=== PATIENT | female | born 1965 | race Caucasian/White ===

== ENCOUNTER 2019-01-26 17:49 | Inpatient (IN) | payer MEDICAID ==
[~2019-01-26] VITALS: Ht 167.6 cm; Wt 79.4 kg
[2019-01-26 18:00] VITALS: BP 153/75
[2019-01-26 18:27] LABS: APPEARANCE CLEAR (CLEAR); BILIRUBIN NEGATIVE (NEGATIVE); COLOR YELLOW (YELLOW); GLUCOSE NEGATIVE (NEGATIVE); KETONE NEGATIVE (NEGATIVE); NITRITE NEGATIVE (NEGATIVE); PROTEIN NEGATIVE (NEGATIVE); UROBILINOGEN NORMAL (NORMAL)
[2019-01-26 18:48] LABS: ALBUMIN 3.1 g/dL (3.4-5.0); ALKALINE PHOSPHATASE 100 U/L (46-116); ALT (SGPT) 31 U/L (10-68); BILIRUBIN - TOTAL 1.83 mg/dL (0.2-1.3); CALC OSMOLALITY 281 mosm/kg (275-300); CALCIUM 8.7 mg/dL (8.5-10.1); CARBON DIOXIDE 23.4 mmol/L (21.0-32.0); CHLORIDE - SERUM 107 mmol/L (98-107); CREATININE - SERUM 0.7 mg/dL (0.6-1.3); GLUCOSE 123 mg/dL (74-106); POTASSIUM - SERUM 3.9 mmol/L (3.5-5.1); PROTEIN - SERUM 7.7 g/dL (6.4-8.2); SODIUM 141 mmol/L (136-145); UREA NITROGEN 13 mg/dL (7-18); eGFR NON AFRICAN AMERICAN > 90 mL/min (90-120)
[2019-01-26 19:00] VITALS: BP 143/65
--- NOTE | 2019-01-26 19:02 | NUR ---
CALLED BROTHER VINCENT [phone] WAS UNABLE TO GIVE ANY INFORMATION. DAVID [phone].
[2019-01-26 19:05] LABS: BASOPHILS 0.5 % (0-2); EOSINOPHILS 4.5 % (0-7); HEMATOCRIT 33.3 % (36.0-48.0); HEMOGLOBIN 11.1 g/dL (12-16); IMMATURE GRANULOCYTES 0.3 % (0-5); LYMPHOCYTES 18.8 % (15-50); MCH 30.4 pg (26.0-34.0); MCHC 33.3 g/dL (31.0-37.0); MCV 91.2 fL (80.0-100.0); MEAN PLATELET VOLUME 9.5 fL (7.4-10.4); MONOCYTES 8.3 % (2-11); NEUTROPHILS 67.6 % (40-80); RBC 3.65 10x6/uL (4.00-5.40); RDW 16.3 % (11.5-14.5)
[2019-01-26 19:16] LABS: PLATELET COUNT 37 10x3/uL (130-400)
[2019-01-26 19:34] LABS: THYROID STIMULATING HORMONE 2.65 uIU/mL (0.36-3.74); TROPONIN-I 0.019 ng/mL (0.000-0.060)
[2019-01-26 19:56] LABS: PLATELET ESTIMATE DECREASED
[2019-01-26 20:00] VITALS: BP 134/92
--- NOTE | 2019-01-26 20:15 | NUR ---
REPORT CALLED TO NURSE DIVYA FOR ROOM 2232. CT HERE FOR ABDOMEN WO CONTRAST. WILL TRANSPORT TO ROOM AFTER CT.
--- NOTE | 2019-01-26 20:40 | NUR ---
RECIEVED TO ROOM CONFUSED AND DISORIENTIATED UNABLE TO REDIRECT OR FOLLOW COMANDS SUCH ASSISTING TO TRANSFER TO BED, SALINE LOCK IN PLACE TO LEFT AC. MOVES ALL EXTREMITIES WELL PUPILS SLUGISH SIDE RAILS UP X 3 CALL LIGHT IN REACH ATTEMPTED TO ORIENTIATE TO ROOM DOES NOT APPEAR TO COMPREHEND. WILL MONITOR CLOSELY
--- NOTE | 2019-01-26 21:45 | NUR ---
CALL TO [facility] [employer] FOR DR LIZARRAGA, INFORMED OF PTS CONFUSION AND UNABLE TO KEEP IN BED, CONTINOUSLY GETTING LEGS OVER AND THROUGH SIDE RAILS, HAVE SPOKE WITH DAUGHTER WHO IS IN [place] AND STATES THER IS NO OTHER FAMILY WHO WOULD BE ABLE TO COME AND STAY WITH PT, AND TO DO WHAT EVER WE NEED TO DO. ORDERS RECIEVED FOR NICOLE NET BED. PT PLACED IN NICOLE NET BED AT THIS TIME
[2019-01-26 21:52] LABS: UDS - AMPHET NEGATIVE QUAL (NEGATIVE); UDS - BARB NEGATIVE QUAL (NEGATIVE); UDS - BENZO NEGATIVE QUAL (NEGATIVE); UDS - COCAINE NEGATIVE QUAL (NEGATIVE); UDS - OPIATE NEGATIVE QUAL (NEGATIVE); UDS - PCP NEGATIVE QUAL (NEGATIVE); UDS - THC NEGATIVE QUAL (NEGATIVE)
--- NOTE | 2019-01-26 23:51 | NUR ---
ASSESSED PT ALERT REMAINING CONFUSED SITTING UP IN BED ABLE TO STATE NAME BUT NO OTHER APPROIATE ANSWERS. HAS PULLED SALINE LOCK OUT. WATER GIVEN PLACED ON BEDPAN NO VOIDING AT THIS TIME
[2019-01-27] VITALS (8 sets, daily range): BP systolic 110–149; BP diastolic 60–72; Ht 167.6 cm; Wt 79.4 kg
--- NOTE | 2019-01-27 01:00 | NUR ---
LYING IN NICOLE NET BED EYES CLOSED RESP REGULAR WILL CONTINUE TO MONITOR
--- NOTE | 2019-01-27 03:42 | NUR ---
LYING IN NICOLE NET BED EYES CLOSED RESP UNLABORED NO APPARENT DISTRESS NOTED AT THIS TIME
--- NOTE | 2019-01-27 04:35 | NUR ---
AWAKE STATES NEEDS TO GO TO BATHROOM, ASSISTED UP TO BEDSIDE COMODE VOIDED, ABLE TO TRANSFER WITH MINIMAL ASSIST, STATES HEAD JUST FEELS LIKE ITS SWIMMING AND HAS FOR ABOUT A WEEK NOW, DENIES ANY MEMORY OF ARRIVAL AT HOSPITAL OR ANYTHING UP UNTIL NOW. ASSISTED BACK TO NICOLE NET BED CALL LIGHT IN REACH WILL MONITOR
[2019-01-27 05:09] LABS: BASOPHILS 0.9 % (0-2); EOSINOPHILS 4.7 % (0-7); HEMATOCRIT 37.2 % (36.0-48.0); HEMOGLOBIN 12.4 g/dL (12-16); IMMATURE GRANULOCYTES 0.5 % (0-5); LYMPHOCYTES 23.7 % (15-50); MCH 30.5 pg (26.0-34.0); MCHC 33.3 g/dL (31.0-37.0); MCV 91.4 fL (80.0-100.0); MEAN PLATELET VOLUME 9.4 fL (7.4-10.4); MONOCYTES 9.5 % (2-11); NEUTROPHILS 60.7 % (40-80); PLATELET COUNT 48 10x3/uL (130-400); RBC 4.07 10x6/uL (4.00-5.40); RDW 16.3 % (11.5-14.5); WBC 4.3 10x3/uL (4.8-10.8)
[2019-01-27 05:31] LABS: ALBUMIN 3.2 g/dL (3.4-5.0); ALKALINE PHOSPHATASE 97 U/L (46-116); ALT (SGPT) 33 U/L (10-68); BILIRUBIN - TOTAL 2.48 mg/dL (0.2-1.3); CALC OSMOLALITY 284 mosm/kg (275-300); CALCIUM 8.8 mg/dL (8.5-10.1); CARBON DIOXIDE 22.4 mmol/L (21.0-32.0); CHLORIDE - SERUM 107 mmol/L (98-107); CREATININE - SERUM 0.7 mg/dL (0.6-1.3); GLUCOSE 103 mg/dL (74-106); MAGNESIUM - SERUM 1.9 mg/dL (1.8-2.4); POTASSIUM - SERUM 3.7 mmol/L (3.5-5.1); PROTEIN - SERUM 7.9 g/dL (6.4-8.2); SODIUM 143 mmol/L (136-145); UREA NITROGEN 13 mg/dL (7-18); eGFR NON AFRICAN AMERICAN > 90 mL/min (90-120)
--- NOTE | 2019-01-27 06:00 | NUR ---
AWAKE AND ALERT ORIENTIATED X 4, ABLE TO USE CALL LIGHT TO CALL FOR ASSISTANCE SIDE PANELS ON NICOLE NET BED LEFT OPEN AT THIS TIME WILL MONITOR
--- NOTE | 2019-01-27 08:00 | NUR ---
PT ALERT AND ORIENTED X 3 WITH SIDES UP ON NICOLE BED. INSTRUCTED TO USE CALL LIGHT FOR ASSIST. NO RISK NOTED TO INJURY TO SELF NOTED.
--- NOTE | 2019-01-27 10:00 | NUR ---
CONTINUED ALERT AND ORIENTED AND ABLE TO FOLLOW DIRECTIONS WITHOUT RISK TO SELF NOTED. ENCOURAGED TO USE CALL LIGHT FOR ASSIST AND VERBALIZED UNDERSTANDING.NO C/O NOTED AT THIS TIME.
[2019-01-27] MEDS ORDERED: CYCLOBENZAPRINE10 MG PO (11:04)
[2019-01-27] MEDS ORDERED: SINGULAIR10 MG PO (11:04)
[2019-01-27] MEDS ORDERED: PREVACID30 MG PO (11:04)
[2019-01-27] MEDS ORDERED: ADVAIR DISKU AER 250 INH (11:05)
[2019-01-27] MEDS ORDERED: LEXAPRO10 MG PO (11:06)
[2019-01-27] MEDS ORDERED: TRAZODONE TAB 100 PO (11:06)
[2019-01-27] MEDS ORDERED: ALBUTEROL SULF8.5 GM INH (11:08)
--- NOTE | 2019-01-27 12:00 | NUR ---
ALERT AND ORIENTED AND ASSISTED TO BATHROOM WITH SBA. GAIT STEADY AT THIS TIME AND USED CALL LIGHT FOR ASSIST. SIDES CONTINUED UP ON NICOLE BED WITH NO RISKED NOTED TO SELF FAR GETTING UP W/O ASSIST.
--- NOTE | 2019-01-27 13:00 | NUR ---
NICOLE BED DISCONTINUED PER ORDER AND CHANGED TO REGULAR BED WITH FALL PRECAUTIONS IN PLACE AT THIS TIME. ENCOURAGED TO CONTINUE TO USE CALL LIGHT FOR ASSIST AND VERBALIZED UNDERSTANDING.
--- NOTE | 2019-01-27 20:30 | NUR ---
PT ALERT & ORIENTED. GAVE SCHEDULED MEDS. ASSESSMENT COMPLETE PER FLOW-SHEET. PT AMBULATES TO BATHROOM INDEPENDENTLY. NO OTHER NEEDS. WILL CONTINUE TO MONITOR.
[2019-01-28 04:00] VITALS: BP 118/66
[2019-01-28 06:31] LABS: BASOPHILS 0.5 % (0-2); EOSINOPHILS 4.9 % (0-7); HEMATOCRIT 32.8 % (36.0-48.0); HEMOGLOBIN 10.7 g/dL (12-16); IMMATURE GRANULOCYTES 0.5 % (0-5); MCH 30.2 pg (26.0-34.0); MCHC 32.6 g/dL (31.0-37.0); MCV 92.7 fL (80.0-100.0); MEAN PLATELET VOLUME 9.8 fL (7.4-10.4); NEUTROPHILS 58.1 % (40-80); RBC 3.54 10x6/uL (4.00-5.40); RDW 16.2 % (11.5-14.5); WBC 3.9 10x3/uL (4.8-10.8)
[2019-01-28 06:35] LABS: ALBUMIN 2.6 g/dL (3.4-5.0); ALKALINE PHOSPHATASE 89 U/L (46-116); ALT (SGPT) 30 U/L (10-68); BILIRUBIN - TOTAL 1.82 mg/dL (0.2-1.3); CALC OSMOLALITY 278 mosm/kg (275-300); CALCIUM 7.9 mg/dL (8.5-10.1); CHLORIDE - SERUM 106 mmol/L (98-107); CREATININE - SERUM 0.8 mg/dL (0.6-1.3); GLUCOSE 117 mg/dL (74-106); POTASSIUM - SERUM 3.7 mmol/L (3.5-5.1); PROTEIN - SERUM 6.8 g/dL (6.4-8.2); SODIUM 139 mmol/L (136-145); UREA NITROGEN 13 mg/dL (7-18); eGFR NON AFRICAN AMERICAN 79 mL/min (90-120)
[2019-01-28 06:39] LABS: PLATELET COUNT 47 10x3/uL (130-400)
[2019-01-28 06:55] LABS: INR 1.48 (0.85-1.17); PROTIME 17.4 SECONDS (11.6-15.0)
[2019-01-28 09:04] VITALS: BP 129/64
--- NOTE | 2019-01-28 10:43 | NUR ---
ALERT AND ORIENTED X 3.S/L INTACT TO RT. HAND. BS NOTED X4 UP ADLIB TO BATHROOM WITH STEADY GAIT. DENIES ANY PAIN OR DISCOMFORT AT THIS TIME AND ENCOURAGED TO USE CALL LIGHT FOR ASSIST.
[2019-01-28 14:14] VITALS: BP 122/68
[2019-01-28 14:32] VITALS: BP 122/68
[2019-01-28 17:53] VITALS: BP 131/62
[2019-01-28 20:00] VITALS: BP 149/77
--- NOTE | 2019-01-28 23:00 | NUR ---
PT ALERT & ORIENTED. WALKED TO VENDING MACHINE WITH HAIR MACHINE OPERATOR. GAVE SCHEDULED MEDS. COMPLETE ASSESSMENT PER FLOW-SHEET. NO OTHER NEEDS. WILL CONTINUE TO MONITOR.
[2019-01-29] VITALS: BP 122/53
[2019-01-29 04:00] VITALS: BP 130/66
[2019-01-29 06:30] LABS: BASOPHILS 0.8 % (0-2); EOSINOPHILS 4.6 % (0-7); HEMATOCRIT 33.6 % (36.0-48.0); IMMATURE GRANULOCYTES 0.2 % (0-5); LYMPHOCYTES 19.3 % (15-50); MCH 30.1 pg (26.0-34.0); MCHC 32.7 g/dL (31.0-37.0); MCV 91.8 fL (80.0-100.0); MEAN PLATELET VOLUME 9.6 fL (7.4-10.4); NEUTROPHILS 62.1 % (40-80); RBC 3.66 10x6/uL (4.00-5.40); WBC 4.8 10x3/uL (4.8-10.8)
[2019-01-29 06:34] LABS: PLATELET COUNT 43 10x3/uL (130-400)
[2019-01-29 06:46] LABS: APTT 37.9 SECONDS (22.8-39.4); INR 1.4 (0.85-1.17); PROTIME 16.6 SECONDS (11.6-15.0)
[2019-01-29 07:22] LABS: PLATELET ESTIMATE DECREASED
[2019-01-29 07:28] LABS: ALBUMIN 2.9 g/dL (3.4-5.0); ALKALINE PHOSPHATASE 91 U/L (46-116); ALT (SGPT) 32 U/L (10-68); BILIRUBIN - TOTAL 2.13 mg/dL (0.2-1.3); CALC OSMOLALITY 279 mosm/kg (275-300); CALCIUM 8.4 mg/dL (8.5-10.1); CARBON DIOXIDE 23.1 mmol/L (21.0-32.0); CHLORIDE - SERUM 108 mmol/L (98-107); CHOL - HDL RATIO 1.7 ratio (2.3-4.1); CHOLESTEROL, TOTAL 139 mg/dL (0-200); CREATININE - SERUM 0.7 mg/dL (0.6-1.3); FERRITIN 68 ng/mL (3-244); GLUCOSE 101 mg/dL (74-106); HDL CHOLESTEROL 81 mg/dL (32-96); LDL CHOLESTEROL 51 mg/dL (0-100); LDL-HDL RATIO 0.6 ratio (1.5-3.5); POTASSIUM - SERUM 3.8 mmol/L (3.5-5.1); SODIUM 141 mmol/L (136-145); TRIGLYCERIDE 39 mg/dL (30-200); eGFR NON AFRICAN AMERICAN > 90 mL/min (90-120)
[2019-01-29 07:34] LABS: UREA NITROGEN 9 mg/dL (7-18)
[2019-01-29 07:39] LABS: % SATURATION 48 % (15-55); IRON 133 ug/dl (35-150); TOTAL IRON BIND CAPACITY 275 ug/dl (260-445); UNSAT IRON BIND CAPACITY 142 ug/dl (150-375)
[2019-01-29 09:45] VITALS: BP 133/70
--- NOTE | 2019-01-29 10:40 | NUR ---
ALERT AND ORIENTED WITH DECREASED AMMONIA LEVEL TO 62. ENCOURAGED AMBULATING TO INCREASE GASTRIC MOTILITY. ABDOMEN DISTENDED WITH BS NOTED AND SOFT. DENIES ANY PAIN OR DISCOMFORT AT THIS TIME. ENCOURAGED TO USE CALL LIGHT FOR ASSIST.
[2019-01-29 13:46] VITALS: BP 135/76
[2019-01-29 20:00] VITALS: BP 155/70
--- NOTE | 2019-01-29 20:52 | NUR ---
PT ALERT & ORIENTED. GAVE SCHEDULED MEDS. ASSESSMENT COMPLETE PER FLOW-SHEET. NO OTHER NEEDS. WILL CONTINUE TO MONITOR.
[2019-01-30] VITALS: BP 144/69
[2019-01-30 04:00] VITALS: BP 141/77
[2019-01-30 05:49] LABS: INR 1.54 (0.85-1.17); PROTIME 17.9 SECONDS (11.6-15.0)
[2019-01-30 05:50] LABS: BASOPHILS 0.4 % (0-2); EOSINOPHILS 5.2 % (0-7); HEMOGLOBIN 10.6 g/dL (12-16); IMMATURE GRANULOCYTES 0.4 % (0-5); MCH 30.6 pg (26.0-34.0); MCHC 33.1 g/dL (31.0-37.0); MCV 92.5 fL (80.0-100.0); MEAN PLATELET VOLUME 9.3 fL (7.4-10.4); MONOCYTES 9.9 % (2-11); NEUTROPHILS 64.1 % (40-80); RBC 3.46 10x6/uL (4.00-5.40); RDW 16.3 % (11.5-14.5); WBC 4.9 10x3/uL (4.8-10.8)
[2019-01-30 05:51] LABS: PLATELET COUNT 42 10x3/uL (130-400)
[2019-01-30 06:17] LABS: ALBUMIN 2.6 g/dL (3.4-5.0); ALKALINE PHOSPHATASE 87 U/L (46-116); ALT (SGPT) 34 U/L (10-68); BILIRUBIN - TOTAL 1.83 mg/dL (0.2-1.3); CALC OSMOLALITY 278 mosm/kg (275-300); CALCIUM 8.2 mg/dL (8.5-10.1); CARBON DIOXIDE 21.8 mmol/L (21.0-32.0); CHLORIDE - SERUM 107 mmol/L (98-107); CREATININE - SERUM 0.7 mg/dL (0.6-1.3); POTASSIUM - SERUM 3.7 mmol/L (3.5-5.1); PROTEIN - SERUM 6.8 g/dL (6.4-8.2); SODIUM 139 mmol/L (136-145); UREA NITROGEN 7 mg/dL (7-18); eGFR NON AFRICAN AMERICAN > 90 mL/min (90-120)
[2019-01-30 06:21] LABS: GLUCOSE 152 mg/dL (74-106)
--- NOTE | 2019-01-30 08:08 | NUR ---
AWAKE AND ALERT. ORIENTED X3. NO C/O AT THIS TIME. LUNGS ARE CLEAR BILATERALLY, NO COUGH NOTED. SKIN IS INTACT WITHOUT REDNESS. SL TO RIGHT HAND IS PATENT WITHOUT REDNESS AT INSERTION SITE. DENIES NEEDS.
[2019-01-30 08:55] VITALS: BP 121/71
--- NOTE | 2019-01-30 10:54 | NUR ---
IV TO RIGHT HAND ALMOST OUT. PATIENT REQUESTED WE MOVE IT IT WAS SORE. RESITED TO RIGHT FOREARM AFTER 2 ATTEMPTS WITH 22G.
--- NOTE | 2019-01-30 11:00 | NUR ---
OFF UNIT VIA WC FOR TEST.
--- NOTE | 2019-01-30 11:30 | NUR ---
RETURNED FROM TEST. DENIES NEEDS.
--- NOTE | 2019-01-30 12:30 | NUR ---
ATE MOST OF LUNCH. DENIES NEEDS. NO BM REPORTED OF YET.
[2019-01-30 13:00] VITALS: BP 131/71
--- NOTE | 2019-01-30 13:35 | NUR ---
NUTRITION F/U PT TOLERATING REG DIET WITH 75 TO 100% INTAKE RECENT MEALS. WANTS CHARLIE ENSURE BUT CURRENTLY UNAVAILABLE. WILL CONTINUE TO HONOR FOOD PREFERENCES, MONITOR PO INTAKE. RD FOLLOWING
--- NOTE | 2019-01-30 15:52 | NUR ---
RESTING QUIETLY IN BED. DENIES NEEDS. ON PHONE WITH SOMEONE.
--- NOTE | 2019-01-30 15:56 | MORECARE ---
CASE MANAGEMENT DISCHARGE SUMMARY PATIENT: JESS QUEEN UNIT: [id number] ADM DATE: 01/26/19 AGE: 53 : 63 SEX: F ROOM/BED: D.2232 AUTHOR: RED SHOEMAKER PHYSICIAN: REFERRING PHYSICIAN: LEXI LIZARRAGA MD DATE OF SERVICE: 01/30/19 Discharge Plan Patient Name: JESS QUEEN [facility] : 1965 Planned Disposition: Home Anticipated Discharge Date: Discharge Date: Expected LOS: Initial Reviewer: [email or web address] Initial Review Date: 01/30/2019 Generated: 01/30/19 4:55 pm Patient Name: JESS QUEEN Page 51073 at 1556 All edits/amendments must be made on the electronic document DICTATION DATE: 01/30/19 1555 HELIARC WELDER: DARYL 01/30/19 1555 RPT#: [id number] DC DATE: STATUS: ADM IN [facility] [address] [place] [address] END OF REPORT
[2019-01-30 16:00] VITALS: BP 132/67
--- NOTE | 2019-01-30 16:03 | MORECARE ---
CASE MANAGEMENT DISCHARGE SUMMARY PATIENT: JESS QUEEN UNIT: [id number] ADM DATE: 01/26/19 AGE: 53 : 63 SEX: F ROOM/BED: D.2232 AUTHOR: RED SHOEMAKER PHYSICIAN: REFERRING PHYSICIAN: LEXI LIAZRRAGA MD DATE OF SERVICE: 01/30/19 Discharge Plan Patient Name: JESS QUEEN Facility: [facility]:[place] : 1965 Planned Disposition: Home Anticipated Discharge Date: Discharge Date: Expected LOS: Initial Reviewer: [email or web address] Initial Review Date: 01/30/2019 Generated: 01/30/19 5:03 pm Comments DCP- Discharge Planning Updated by [email or web address]: Rosario Srinivasan on 01/30/19 3:[address] Patient Name: JESS QUEEN Admission Status: ER Accout number: [id number] Admission Date: 01-26-2019 : 1965 Admission Diagnosis: Attending: LEXI LIZARRAGA Current LOS: 4 Anticipated DC Date: Planned Disposition: Home Primary Insurance: [place] PRIVATE OPTIONS [facility] Discharge Planning Comments: CM met with patient to complete initial dc planning assessment. CM educated patient on the CM role and verbal consent given by patient to complete assessment. Patient lives at home alone, states her brother will be living with her when she returns home. At discharge patient plans to return and feels this is a safe discharge. CM discussed availability of home health, rehab services, and medical equipment. Patient denied known discharge needs at this time. She declines home health offered. She states that she has a nebulizer, but could use new supplies. I gave her a list of DME companies and also informed of medical equipment companies in [place]. She states that she would like to get a small portable nebulizer "like I used to have that plugged into a cigarette laboratory associate." Declines to have me get nebulizer supplies and states she has a back room in her house that she needs to clean up and see if her small portable machine in in there. States she will go to a DME company herself if needed. States one of her cousins will drive her home at discharge. CM will continue to follow and will assist as needed with dc plans/needs. Backend Developer: Rosario Srinivasan DCPIA - Discharge Planning Initial Assessment Updated by [email or web address]: Rosario Srinivasan on 01/30/19 3:56 pm * Is the patient Alert and Oriented? Yes * How many steps to enter\\exit or inside your home? 1/0 * PCP Dr. Jenkins ([place]) * Pharmacy [facility] * Preadmission Environment Home Alone * ADLs Independent * Equipment Nebulizer * List name and contact numbers for known caregivers / representatives who currently or will assist patient after discharge: Keturah Morin [facility] - [phone] * Verbal permission to speak to the caregivers and representatives has been obtained from the patient. Yes * Community resources currently utilized None * Additional services required to return to the preadmission environment? No * Can the patient safely return to the preadmission environment? Yes * Has this patient been hospitalized within the prior 30 days at any hospital? No Last DP export: 01/30/19 2:55 p Patient Name: JESS QUEEN Page [id number] at 1603 All edits/amendments must be made on the electronic document DICTATION DATE: 01/30/19 160 ESTHETICIAN/SKIN THERAPIST: DARYL 01/30/19 160 RPT#: [id number] DC DATE: STATUS: ADM IN [facility] [address] [place] [address] END OF REPORT
--- NOTE | 2019-01-30 18:31 | NUR ---
ATE ALL OF SUPPER. DENIES NEEDS. NO CHANGES NOTED.
[2019-01-30 20:00] VITALS: BP 140/76
--- NOTE | 2019-01-30 20:00 | NUR ---
ALERT RESTING IN BED, NO C/O OR REQUEST, SEE SHIFT ASSESSMENT CALL LIGHT IN REACH
[2019-01-31 04:00] VITALS: BP 128/75
[2019-01-31 06:59] LABS: ALBUMIN 2.6 g/dL (3.4-5.0); ALKALINE PHOSPHATASE 85 U/L (46-116); ALT (SGPT) 34 U/L (10-68); BASOPHILS 0.6 % (0-2); BILIRUBIN - TOTAL 1.54 mg/dL (0.2-1.3); CALC OSMOLALITY 279 mosm/kg (275-300); CALCIUM 7.9 mg/dL (8.5-10.1); CARBON DIOXIDE 20.9 mmol/L (21.0-32.0); CHLORIDE - SERUM 107 mmol/L (98-107); CREATININE - SERUM 0.7 mg/dL (0.6-1.3); EOSINOPHILS 5.1 % (0-7); GLUCOSE 145 mg/dL (74-106); HEMATOCRIT 31.5 % (36.0-48.0); HEMOGLOBIN 10.4 g/dL (12-16); IMMATURE GRANULOCYTES 0.4 % (0-5); LYMPHOCYTES 18.7 % (15-50); MCH 30.7 pg (26.0-34.0); MCV 92.9 fL (80.0-100.0); MEAN PLATELET VOLUME 9.7 fL (7.4-10.4); MONOCYTES 9.2 % (2-11); POTASSIUM - SERUM 3.8 mmol/L (3.5-5.1); PROTEIN - SERUM 6.4 g/dL (6.4-8.2); RBC 3.39 10x6/uL (4.00-5.40); RDW 16.5 % (11.5-14.5); SODIUM 140 mmol/L (136-145); UREA NITROGEN 6 mg/dL (7-18); WBC 4.9 10x3/uL (4.8-10.8); eGFR NON AFRICAN AMERICAN > 90 mL/min (90-120)
[2019-01-31 07:21] LABS: PLATELET COUNT 41 10x3/uL (130-400)
--- NOTE | 2019-01-31 07:55 | NUR ---
AWAKE AND ALERT. ORIENTED X3. LUNGS ARE CLEAR BILATERALLY, NO COUGH NOTED. SKIN IS INTACT WITHOUT REDNESS. SL TO RIGHT FOREARM IS PATENT WITHOUT REDNESS AT INSERTION SITE. DENIES NEEDS. REPORTS SEVERAL STOOLS IN PM BUT MOSTLY WATER. WILL MONITOR.
[2019-01-31 08:52] VITALS: BP 136/62
[2019-01-31 08:56] LABS: PLATELET ESTIMATE DECREASED
--- NOTE | 2019-01-31 10:00 | NUR ---
TALKING ON PHONE. DENIES NEEDS.
[2019-01-31] MEDS ORDERED: XIFAXAN550 MG PO (11:58)
[2019-01-31 12:15] LABS: ALPHA FETOPROTEIN -(TUMOR MRK) 3.8 ng/mL (0.0-8.3)
[2019-01-31] MEDS ORDERED: MIRALAX17 GM PO (12:19)
[2019-01-31] MEDS ORDERED: CHRONULAC30 ML PO (12:19)
[2019-01-31 13:15] LABS: HEPATITIS C ANTIBODY <0.1 S/CO RAT (0.0-0.9)
[2019-01-31 13:49] VITALS: BP 148/87
--- NOTE | 2019-01-31 13:54 | MORECARE ---
CASE MANAGEMENT DISCHARGE SUMMARY PATIENT: JESS QUEEN UNIT: [id number] ADM DATE: 01/26/19 AGE: 53 : 63 SEX: F ROOM/BED: D.2232 AUTHOR: RED SHOEMAKER PHYSICIAN: REFERRING PHYSICIAN: LEXI LIZARRAGA MD DATE OF SERVICE: 01/31/19 Discharge Plan Patient Name: JESS QUEEN Facility: [facility]:[place] : 1965 Planned Disposition: Home Anticipated Discharge Date: Discharge Date: Expected LOS: Initial Reviewer: [email or web address] Initial Review Date: 01/30/2019 Generated: 01/31/19 2:54 pm Comments DCP- Discharge Planning Updated by [email or web address]: Rosario Srinivasan on 01/31/19 12:[address] Patient Name: JESS QUEEN Encounter No: [id number] : 1965 Primary Insurance: [email or web address] MARTINEZ Anticipated DC Date: Planned Disposition: Home External Planned Provider: : DCP follow-up note: Patient and family in agreement with discharge plan. No changes to plan. States she will get someone to come and get her. I informed her she has 3 prescriptions at [facility] to order picker, voiced understanding. Case management will follow and assist as needed. Rosario Srinivasan DCP- Discharge Planning Updated by [id number]: Rosario Srinivasan on 01/30/19 3:[address] Patient Name: JESS QUEEN Admission Status: ER Accout number: [id number] Admission Date: 01-26-2019 : 1965 Admission Diagnosis: Attending: LEXI LIZARRAGA Current LOS: 4 Anticipated DC Date: Planned Disposition: Home Primary Insurance: [email or web address]IVATE [employer]IONS [place]ARTINEZ Discharge Planning Comments: CM met with patient to complete initial dc planning assessment. CM educated patient on the CM role and verbal consent given by patient to complete assessment. Patient lives at home alone, states her brother will be living with her when she returns home. At discharge patient plans to return and feels this is a safe discharge. CM discussed availability of home health, rehab services, and medical equipment. Patient denied known discharge needs at this time. She declines home health offered. She states that she has a nebulizer, but could use new supplies. I gave her a list of DME companies and also informed of medical equipment companies in [place]. She states that she would like to get a small portable nebulizer "like I used to have that plugged into a cigarette striper spray gun." Declines to have me get nebulizer supplies and states she has a back room in her house that she needs to clean up and see if her small portable machine in in there. States she will go to a DME company herself if needed. States one of her cousins will drive her home at discharge. CM will continue to follow and will assist as needed with dc plans/needs. Mine Equipment Design Engineer: Rosario Srinivasan DCPIA - Discharge Planning Initial Assessment Updated by [email or web address]: Rosario Zarina on 01/30/19 3:56 pm * Is the patient Alert and Oriented? Yes * How many steps to enter\\exit or inside your home? 10 * PCP Dr. Jenkins ([place]) * Pharmacy [facility] * Preadmission Environment Home Alone * ADLs Independent * Equipment Nebulizer * List name and contact numbers for known caregivers / representatives who currently or will assist patient after discharge: Keturah Morin - [facility] - [phone] * Verbal permission to speak to the caregivers and representatives has been obtained from the patient. Yes * Community resources currently utilized None * Additional services required to return to the preadmission environment? No * Can the patient safely return to the preadmission environment? Yes * Has this patient been hospitalized within the prior 30 days at any hospital? No Last DP export: 01/30/19 3:03 p Patient Name: JESS QUEEN Page 62022 at 1354 All edits/amendments must be made on the electronic document DICTATION DATE: 01/31/19 1353 BERRY PLANTER: DARYL 01/31/19 1353 RPT#: [id number] DC DATE: STATUS: ADM IN [facility] [address] [place] [address] END OF REPORT
[2019-01-31 14:11] LABS: EBV - EARLY ANTIGEN AB IGG >150.0 U/mL (0.0-8.9); EBV VIRAL CAPSID AB IGM >160.0 U/mL (0.0-35.9)
--- NOTE | 2019-01-31 15:38 | NUR ---
OT NOTE: PT GETTING HER THINGS PACKED. STATES THAT SHE IS LEAVING SOON. PROCEDES TO GO INTO GREAT DETAIL ABOUT PAST LIVING SITUATION, FAMILY MEMBERS, DRUG/ALCOHOL ABUSE, ETC...PT ABLE TO AMB AD JULIAN WITH NO SAFETY ISSUES. BALANCE APPEARS GOOD. INDEP WITH ADLS. FREDERICK HUI, OTR/L
--- NOTE | 2019-01-31 15:39 | NUR ---
OT NOTE: PT COMPLETED BED MOB AND EOB SITTING WITH SBA. PT COMPLETED GROOMING TASK WITH SET UP. THANK YOU, ORACIO CALDERÓN
[2019-01-31 16:09] LABS: ANA REFLEX - DIRECT Negative (Negative)
[2019-01-31 16:39] VITALS: BP 115/62
--- NOTE | 2019-01-31 17:21 | NUR ---
DISCHARGED TO HOME AMBULATORY WITH FAMILY. DISCHARGE INSTRUCTIONS GIVEN BOTH VERBALLY AND WRITTEN. ALL QUESTIONS ANSWERED. PATIENT AND FAMILY VERBALIZED UNDERSTANDING OF SAME. PRESCRIPTIONS CALLED TO [facility] [address]. CALLED [facility] AND CANCELLED MEDS THAT WERE ESCRIBED TO THEM. IV TO RIGHT FOREARM D/C WITH CATHETER INTACT. ALL BELONGINGS WITH PATIENT.
[2019-02-01 14:13] LABS: MITOCHONDRIAL ANTIBODY <20.0 Units (0.0-20.0); SMOOTH MUSCLE ABS (ACTIN) 19 Units (0-19)
--- NOTE | 2019-02-02 10:15 | MORECARE ---
CASE MANAGEMENT DISCHARGE SUMMARY PATIENT: JESS QUEEN UNIT: [id number] ADM DATE: 01/26/19 AGE: 53 : 63 SEX: F ROOM/BED: D.2232 AUTHOR: RED SHOEMAKER PHYSICIAN: REFERRING PHYSICIAN: LEXI LIZARRAGA MD DATE OF SERVICE: 02/02/19 Discharge Plan Patient Name: JESS QUEEN Facility: [facility]:[place] : 1965 Planned Disposition: Home Anticipated Discharge Date: Discharge Date: 01/31/2019 Expected LOS: 0 Initial Reviewer: [email or web address] Initial Review Date: 01/30/2019 Generated: 02/02/19 11:15 am Comments DCP- Discharge Planning Updated by [email or web address]: Rosario Srinivasan on 01/31/19 12:[address] Patient Name: JESS QUEEN Encounter No: [id number] : 1965 Primary Insurance: [employer] [place]ARTINE[place] Anticipated DC Date: Planned Disposition: Home External Planned Provider: : DCP follow-up note: Patient and family in agreement with discharge plan. No changes to plan. States she will get someone to come and get her. I informed her she has 3 prescriptions at [facility] to chicken picker, voiced understanding. Case management will follow and assist as needed. Rosario Srinivasan DCP- Discharge Planning Updated by [email or web address]: Rosario Srinivasan on 01/30/19 3:[address] Patient Name: JESS QUEEN Admission Status: ER Accout number: [id number] Admission Date: 01-26-2019 : 1965 Admission Diagnosis: Attending: LEXI LIZARRAGA Current LOS: 4 Anticipated DC Date: Planned Disposition: Home Primary Insurance: [employer] [place] Discharge Planning Comments: CM met with patient to complete initial dc planning assessment. CM educated patient on the CM role and verbal consent given by patient to complete assessment. Patient lives at home alone, states her brother will be living with her when she returns home. At discharge patient plans to return and feels this is a safe discharge. CM discussed availability of home health, rehab services, and medical equipment. Patient denied known discharge needs at this time. She declines home health offered. She states that she has a nebulizer, but could use new supplies. I gave her a list of DME companies and also informed of medical equipment companies in [place]. She states that she would like to get a small portable nebulizer "like I used to have that plugged into a cigarette polystyrene molding machine tender." Declines to have me get nebulizer supplies and states she has a back room in her house that she needs to clean up and see if her small portable machine in in there. States she will go to a DME company herself if needed. States one of her cousins will drive her home at discharge. CM will continue to follow and will assist as needed with dc plans/needs. Environmental Assistant: Rosario Srinivasan DCPIA - Discharge Planning Initial Assessment Updated by [email or web address]: Rosario Srinivasan on 01/30/19 3:56 pm * Is the patient Alert and Oriented? Yes * How many steps to enter\\exit or inside your home? 1/0 * PCP Dr. Jenkins ([place]) * Pharmacy [facility] * Preadmission Environment Home Alone * ADLs Independent * Equipment Nebulizer * List name and contact numbers for known caregivers / representatives who currently or will assist patient after discharge: Keturah Morin [facility] - [phone] * Verbal permission to speak to the caregivers and representatives has been obtained from the patient. Yes * Community resources currently utilized None * Additional services required to return to the preadmission environment? No * Can the patient safely return to the preadmission environment? Yes * Has this patient been hospitalized within the prior 30 days at any hospital? No Last DP export: 01/31/19 12:54 p Patient Name: JESS QUEEN Page 92096 at 1015 All edits/amendments must be made on the electronic document DICTATION DATE: 02/02/19 1015 RCIS: DARYL 02/02/19 1015 RPT#: [id number] DC DATE:01/31/19 STATUS: DIS IN [facility] [address] [place] [address] END OF REPORT
--- NOTE | 2019-02-02 10:23 | MORECARE ---
CASE MANAGEMENT DISCHARGE SUMMARY PATIENT: JESS QUEEN UNIT: [id number] ADM DATE: 01/26/19 AGE: 53 : 63 SEX: F ROOM/BED: D.2232 AUTHOR: RED SHOEMAKER PHYSICIAN: REFERRING PHYSICIAN: LEXI LIZARRAGA MD DATE OF SERVICE: 02/02/19 Discharge Plan Patient Name: JESS QUEEN Facility: [facility]:[place] : 1965 Planned Disposition: Home Anticipated Discharge Date: Discharge Date: 01/31/2019 Expected LOS: 0 Initial Reviewer: [email or web address] Initial Review Date: 01/30/2019 Generated: 02/02/19 11:23 am Comments DCP- Discharge Planning Updated by [email or web address]: Rosario Srinivasan on 01/31/19 12:[address] Patient Name: JESS QUEEN Encounter No: [id number] : 1965 Primary Insurance: [employer] [place]ARTINEZ Anticipated DC Date: Planned Disposition: Home External Planned Provider: : DCP follow-up note: Patient and family in agreement with discharge plan. No changes to plan. States she will get someone to come and get her. I informed her she has 3 prescriptions at [facility] pharmacy to oyster picker, voiced understanding. Case management will follow and assist as needed. Rosario Srinivasan DCP- Discharge Planning Updated by [email or web address]: Rosario Srinivasan on 01/30/19 3:[address] Patient Name: JESS QUEEN Admission Status: ER Accout number: [id number] Admission Date: 01-26-2019 : 1965 Admission Diagnosis: Attending: LEXI LIZARRAGA Current LOS: 4 Anticipated DC Date: Planned Disposition: Home Primary Insurance: [employer] [place]ARTINE[place] Discharge Planning Comments: CM met with patient to complete initial dc planning assessment. CM educated patient on the CM role and verbal consent given by patient to complete assessment. Patient lives at home alone, states her brother will be living with her when she returns home. At discharge patient plans to return and feels this is a safe discharge. CM discussed availability of home health, rehab services, and medical equipment. Patient denied known discharge needs at this time. She declines home health offered. She states that she has a nebulizer, but could use new supplies. I gave her a list of DME companies and also informed of medical equipment companies in [place]. She states that she would like to get a small portable nebulizer "like I used to have that plugged into a cigarette technical agronomist." Declines to have me get nebulizer supplies and states she has a back room in her house that she needs to clean up and see if her small portable machine in in there. States she will go to a DME company herself if needed. States one of her cousins will drive her home at discharge. CM will continue to follow and will assist as needed with dc plans/needs. Charge Account Authorizer: Rosario Srinivasan DCPIA - Discharge Planning Initial Assessment Updated by [email or web address]: Rosario Srinivasan on 01/30/19 3:56 pm * Is the patient Alert and Oriented? Yes * How many steps to enter\\exit or inside your home? 1/0 * PCP Dr. Jenkins ([place]) * Pharmacy [facility] * Preadmission Environment Home Alone * ADLs Independent * Equipment Nebulizer * List name and contact numbers for known caregivers / representatives who currently or will assist patient after discharge: Keturah Morin [facility] - [phone] * Verbal permission to speak to the caregivers and representatives has been obtained from the patient. Yes * Community resources currently utilized None * Additional services required to return to the preadmission environment? No * Can the patient safely return to the preadmission environment? Yes * Has this patient been hospitalized within the prior 30 days at any hospital? No Last DP export: 01/31/19 12:54 p Patient Name: JESS QUEEN Page 65932 at 1023 All edits/amendments must be made on the electronic document DICTATION DATE: 02/02/19 1023 NEEDLE LOOM WEAVER: DARYL 02/02/19 1023 RPT#: [id number] DC DATE:01/31/19 STATUS: DIS IN [facility] [address] [place] [address] END OF REPORT
== END 2019-01-31 17:27 | disposition home or self-care (01) | DRG 432 ==
LOC: D.ER 17:49 → D.MS 19:46
PROVIDERS: Emergency Medicine; Family Medicine; Internal Medicine Gastroenterology; ADMIT Family Medicine; ATTEND Family Medicine
DX: K70.30 Alcoholic cirrhosis of liver without ascites (principal); K72.00 Acute and subacute hepatic failure without coma; D61.818 Other pancytopenia; E72.20 Disorder of urea cycle metabolism, unspecified; F17.213 Nicotine dependence, cigarettes, with withdrawal; D69.6 Thrombocytopenia, unspecified; K21.9 Gastro-esophageal reflux disease without esophagitis; F32.89 Other specified depressive episodes

== ENCOUNTER → 2019-04-27 09:26 | Outpatient (CLI) | payer MEDICAID ==
[2019-01-27 13:18] VITALS: BMI 28.2
[~2019-04-27 09:26] MED LIST: ADVAIR DISKU AER 250 INH; ALBUTEROL SULF8.5 GM INH; CHRONULAC30 ML PO; CYCLOBENZAPRINE10 MG PO; LEXAPRO10 MG PO; MIRALAX17 GM PO; PREVACID30 MG PO; SINGULAIR10 MG PO; TRAZODONE TAB 100 PO; XIFAXAN550 MG PO
[2019-04-27 10:34] LABS: BASOPHILS 0.6 % (0-2); HEMATOCRIT 37.2 % (36.0-48.0); HEMOGLOBIN 12.4 g/dL (12-16); IMMATURE GRANULOCYTES 0.3 % (0-5); LYMPHOCYTES 17.6 % (15-50); MCH 30.2 pg (26.0-34.0); MCHC 33.3 g/dL (31.0-37.0); MCV 90.5 fL (80.0-100.0); MEAN PLATELET VOLUME 10.2 fL (7.4-10.4); MONOCYTES 8.4 % (2-11); NEUTROPHILS 69.1 % (40-80); RBC 4.11 10x6/uL (4.00-5.40); RDW 16.1 % (11.5-14.5); WBC 6.5 10x3/uL (4.8-10.8)
[2019-04-27 10:39] LABS: INR 1.55 (0.85-1.17); PLATELET COUNT 65 10x3/uL (130-400)
[2019-04-27 10:40] LABS: ALBUMIN 3.3 g/dL (3.4-5.0); ALKALINE PHOSPHATASE 104 U/L (46-116); ALT (SGPT) 36 U/L (10-68); BILIRUBIN - DIRECT 0.47 mg/dL (0.00-0.30); BILIRUBIN - INDIRECT 1.24 mg/dL (0.00-1.00); BILIRUBIN - TOTAL 1.71 mg/dL (0.2-1.3); CALC OSMOLALITY 277 mosm/kg (275-300); CALCIUM 8.6 mg/dL (8.5-10.1); CARBON DIOXIDE 26.8 mmol/L (21.0-32.0); CHLORIDE - SERUM 106 mmol/L (98-107); CREATININE - SERUM 0.7 mg/dL (0.6-1.3); GLUCOSE 121 mg/dL (74-106); POTASSIUM - SERUM 4.2 mmol/L (3.5-5.1); PROTEIN - SERUM 7.7 g/dL (6.4-8.2); SODIUM 139 mmol/L (136-145); UREA NITROGEN 11 mg/dL (7-18); eGFR NON AFRICAN AMERICAN > 90 mL/min (90-120)
[2019-04-27 11:49] LABS: PLATELET ESTIMATE DECREASED
[2019-04-27 11:50] LABS: ANISOCYTOSIS 1+
[2019-04-27 11:51] LABS: ROULEAUX OCC
== END | disposition home or self-care (01) ==
LOC: D.US 09:26
PROVIDERS: ATTEND Internal Medicine Gastroenterology
DX: K74.60 Unspecified cirrhosis of liver (principal); E72.20 Disorder of urea cycle metabolism, unspecified; R16.1 Splenomegaly, not elsewhere classified

== ENCOUNTER → 2019-05-15 07:09 | Outpatient (CLI) | payer MEDICAID ==
[2019-01-27 13:18] VITALS: BMI 28.2
== END | disposition home or self-care (01) ==
LOC: D.LAB 07:09
PROVIDERS: ATTEND Internal Medicine Gastroenterology
DX: K74.60 Unspecified cirrhosis of liver (principal)

== ENCOUNTER 2019-05-17 09:54 | Day surgery (SDC) | payer MEDICAID ==
[2019-05-15 07:48] LABS: HEMATOCRIT 35.7 % (36.0-48.0); HEMOGLOBIN 11.9 g/dL (12-16); IMMATURE GRANULOCYTES 0.5 % (0-5); MCH 29.9 pg (26.0-34.0); MCHC 33.3 g/dL (31.0-37.0); MCV 89.7 fL (80.0-100.0); RBC 3.98 10x6/uL (4.00-5.40); RDW 16.1 % (11.5-14.5); WBC 5.8 10x3/uL (4.8-10.8)
[2019-05-15 08:01] LABS: INR 1.54 (0.85-1.17); PROTIME 17.9 SECONDS (11.6-15.0)
[2019-05-15 08:03] LABS: ALBUMIN 3.2 g/dL (3.4-5.0); ALKALINE PHOSPHATASE 121 U/L (46-116); ALT (SGPT) 37 U/L (10-68); BILIRUBIN - INDIRECT 1.33 mg/dL (0.00-1.00); BILIRUBIN - TOTAL 1.83 mg/dL (0.2-1.3); CALC OSMOLALITY 278 mosm/kg (275-300); CALCIUM 8.6 mg/dL (8.5-10.1); CARBON DIOXIDE 24.9 mmol/L (21.0-32.0); CHLORIDE - SERUM 106 mmol/L (98-107); CREATININE - SERUM 0.7 mg/dL (0.6-1.3); GLUCOSE 131 mg/dL (74-106); POTASSIUM - SERUM 3.5 mmol/L (3.5-5.1); PROTEIN - SERUM 7.5 g/dL (6.4-8.2); SODIUM 140 mmol/L (136-145); UREA NITROGEN 8 mg/dL (7-18); eGFR NON AFRICAN AMERICAN > 90 mL/min (90-120)
[2019-05-15 08:33] LABS: BASOPHILS 1 % (0-2); EOSINOPHILS 2 % (0-7); LYMPHOCYTES 26 % (15-50); MONOCYTES 1 % (2-11); NEUTROPHILS 68 % (40-80)
[2019-05-15 13:24] LABS: PLATELET COUNT 45 10x3/uL (130-400)
[~2019-05-17] VITALS: Ht 165.1 cm; Wt 84.5 kg
--- NOTE | ~2019-05-17 | OP ---
PATIENT NAME: JESS QUEEN MEDICAL RECORD: [id number] :63 [facility] DATE: SURGEON: SAMANTHA BEATTY DO DATE OF OPERATION: 05/17/2019 PROCEDURE: EGD with variceal banding. INDICATIONS FOR PROCEDURE: Evidence of gastric varices and cirrhosis on imaging as well as hyperammonemia and splenomegaly. SCOPE: Olympus video gastroscope. MEDICATIONS: Propofol 250 mg IV per Anesthesia. ESTIMATED BLOOD LOSS: Minimal. COMPLICATIONS: None. FINDINGS: Informed consent was given. The patient was made comfortable with the above medication. After reaching an adequate level of sedation by slow IV push, the patient was placed on her left side. The endoscope was advanced under direct visualization through the mouth to the second portion of the duodenum. Throughout the entire esophagus, there were grade III to grade IV esophageal varices with white nipple sign stigmata. There was no active bleeding. The endoscope was advanced down to the GE junction where there was some evidence of LA class A reflux-induced esophagitis. With advancement of the endoscope into the stomach, there was diffuse portal hypertensive gastropathy without active bleeding. In the antrum, there appeared to be a nodule with a slightly umbilicated or ulcerated center. This was not biopsied today. The patient's platelet level was 45,000 and INR is unknown. This will be reevaluated on repeat endoscopy. The endoscope was advanced beyond the pylorus into the duodenum, which appeared normal down to the second portion. The endoscope was then withdrawn from the patient and fitted with a [employer] speed band. The endoscope was advanced back down to the GE junction and slightly withdrawn until the most distal and largest varices were encountered and 3 bands were placed successfully. The endoscope was then withdrawn from the patient. The patient tolerated the procedure well and there were no complications. IMPRESSIONS: 1. Grade III to grade IV esophageal varices status post banding times 3. 2. LA class A reflux-induced esophagitis. 3. Portal hypertensive gastropathy. 4. An antral nodule that will be reevaluated at the next upper endoscopy. PLAN AND RECOMMENDATIONS: 1. Discharge home when recovery parameters are met. 2. Liquid diet times 48 hours, followed by soft diet times 48 hours, then regular. 3. Follow up in GI clinic as needed. 4. Recall EGD in 4-6 weeks as the schedule allows for repeat banding as needed until varices are eradicated. TRANSINT:[id number] Voice Confirmation ID: [id number] DOCUMENT ID: [id number] OPERATIVE REPORT [id number] JESS QUEEN NATHAN A DO CC: [id number] DICTATION DATE: 05/17/19 1304 VERIFYING MACHINE OPERATOR: 05/17/19 1327 [facility] [address] [id number]
[2019-05-17 10:27] LABS: HEMATOCRIT 34.5 % (36.0-48.0); HEMOGLOBIN 11.6 g/dL (12-16); MCH 30.5 pg (26.0-34.0); MCHC 33.6 g/dL (31.0-37.0); MCV 90.8 fL (80.0-100.0); MEAN PLATELET VOLUME 9.4 fL (7.4-10.4); RBC 3.8 10x6/uL (4.00-5.40); RDW 16.4 % (11.5-14.5); WBC 4.9 10x3/uL (4.8-10.8)
[2019-05-17 11:22] VITALS: BP 122/69; Ht 165.1 cm; Wt 84.5 kg
== END 2019-05-17 14:44 | disposition home or self-care (01) ==
LOC: D.OPS 09:54
PROVIDERS: Anesthesiology; ATTEND Internal Medicine Gastroenterology
DX: K76.6 Portal hypertension (principal); K31.89 Other diseases of stomach and duodenum; I85.10 Secondary esophageal varices without bleeding; K21.0 Gastro-esophageal reflux disease with esophagitis; K31.9 Disease of stomach and duodenum, unspecified; Z01.812 Encounter for preprocedural laboratory examination

== ENCOUNTER → 2019-06-15 12:53 | Outpatient (CLI) | payer MEDICAID ==
[2019-05-17 11:22] VITALS: BMI 31.0
[2019-06-15 13:27] LABS: BASOPHILS 0.5 % (0-2); EOSINOPHILS 5.4 % (0-7); HEMATOCRIT 36.4 % (36.0-48.0); HEMOGLOBIN 12.5 g/dL (12-16); IMMATURE GRANULOCYTES 0.2 % (0-5); LYMPHOCYTES 20.5 % (15-50); MCH 31.6 pg (26.0-34.0); MCHC 34.3 g/dL (31.0-37.0); MCV 92.2 fL (80.0-100.0); MEAN PLATELET VOLUME 9.6 fL (7.4-10.4); MONOCYTES 8.2 % (2-11); NEUTROPHILS 65.2 % (40-80); RBC 3.95 10x6/uL (4.00-5.40); RDW 16.5 % (11.5-14.5); WBC 5.9 10x3/uL (4.8-10.8)
[2019-06-15 13:28] LABS: PLATELET COUNT 62 10x3/uL (130-400)
[2019-06-15 13:36] LABS: INR 1.52 (0.85-1.17); PROTIME 17.7 SECONDS (11.6-15.0)
[2019-06-15 14:37] LABS: PLATELET ESTIMATE DECREASED
== END | disposition home or self-care (01) ==
LOC: D.LAB 12:53
PROVIDERS: ATTEND Internal Medicine Gastroenterology
DX: D69.6 Thrombocytopenia, unspecified (principal)

== ENCOUNTER 2019-06-19 08:45 | Day surgery (SDC) | payer MEDICAID ==
[~2019-06-19] VITALS: Ht 165.1 cm; Wt 84.1 kg
[2019-06-19 09:20] LABS: BASOPHILS 0.5 % (0-2); EOSINOPHILS 3.9 % (0-7); HEMOGLOBIN 12.8 g/dL (12-16); IMMATURE GRANULOCYTES 0.2 % (0-5); LYMPHOCYTES 21.1 % (15-50); MCH 31.5 pg (26.0-34.0); MCHC 34.6 g/dL (31.0-37.0); MCV 91.1 fL (80.0-100.0); MEAN PLATELET VOLUME 10.1 fL (7.4-10.4); MONOCYTES 7.8 % (2-11); NEUTROPHILS 66.5 % (40-80); PLATELET COUNT 67 10x3/uL (130-400); RBC 4.06 10x6/uL (4.00-5.40); RDW 16.3 % (11.5-14.5); WBC 6.6 10x3/uL (4.8-10.8)
[2019-06-19 09:25] LABS: ALBUMIN 3.4 g/dL (3.4-5.0); ANION GAP 14.4 mmol/L (8-16); BILIRUBIN - TOTAL 2.01 mg/dL (0.2-1.3); CALCIUM 8.8 mg/dL (8.5-10.1); CARBON DIOXIDE 19.3 mmol/L (21.0-32.0); POTASSIUM - SERUM 3.7 mmol/L (3.5-5.1); PROTEIN - SERUM 7.9 g/dL (6.4-8.2)
[2019-06-19 09:39] LABS: PLATELET ESTIMATE DECREASED
[2019-06-19] MEDS ORDERED: PROPRANOLOL HCL20 MG PO (09:50)
[2019-06-19 09:51] VITALS: BP 129/57; Ht 165.1 cm; Wt 84.1 kg
--- NOTE | 2019-06-19 11:41 | NUR ---
DC INSTRUCTIONS GIVEN TO PT. STATES UNDERSTANDING. MONITORING STOMACH PAIN CURRENTLY.
--- NOTE | 2019-06-19 13:01 | NUR ---
1155 PT C/O OF ABDOMINAL PAIN BUT STATES PAIN LEVEL HAS GONE FROM AN 8 TO A 6 CURRENTLY. ASSISTED PT TO BR. PT VOIDED AND PASSED FLATUS. 1200 PT BACK TO BED. NO CHANGE IN LEVEL OF PAIN.
--- NOTE | 2019-06-19 13:02 | NUR ---
1225 PT REPORTS PAIN LEVEL IS ABOUT A [address] BEATTY HAS BEEN IN ROOM TO TALK TO PT ABOUT HER PAIN. PT TO RECEIVE A PRESCRIPTION FROM DR BEATTY FOR ELIXIR. 1230 IV DC'D. CATHETER TIP INTACT. NO BLEEDING AT SITE. BANDAID APPLIED. PT HAS MET DISCHARGE CRITERIA. SHE IS GETTING DRESSED AND WAITING FOR HER RIDE HOME. 1300 PT SITTING IN CHAIR WAITING FOR HER RIDE HOME. ON IPAD. PT STATES HER PAIN LEVEL IS CURRENTLY AT A 3. STATES IT IS SLOWLY EASING UP.
--- NOTE | 2019-06-19 13:43 | NUR ---
PT LEFT UNIT VIA WC AT 1343
--- NOTE | 2019-06-19 20:17 | OP ---
PATIENT NAME: JESS QUEEN MEDICAL RECORD: [id number] :63 LOCATION:[facility] ADMISSION DATE: SURGEON: SAMANTHA BEATTY DO DATE OF OPERATION: 06/19/2019 PROCEDURE: EGD with variceal banding. INDICATIONS FOR PROCEDURE: History of esophageal varices. The patient's last upper endoscopy was on 05/17/2019 at which point 3 bands were placed. SCOPE: Olympus video gastroscope. MEDICATIONS: Propofol 150 mg IV per anesthesia. ESTIMATED BLOOD LOSS: Minimal. COMPLICATIONS: None. FINDINGS: Informed consent was given. The patient was made comfortable with the above medication. After reaching an adequate level of sedation by slow IV push, the patient was placed on her left side. The endoscope was advanced under direct visualization through the mouth to the second portion of the duodenum. Throughout the entire esophagus, there were grade III to grade IV esophageal varices with what appeared to be some ulcerated sites along those variceal columns. There was no active bleeding. The endoscope was advanced down to the GE junction where there was some evidence of LA class A reflux-induced esophagitis. With advancement of the endoscope into the stomach, there was diffuse portal hypertensive gastropathy without active bleeding. In the antrum, the previously identified nodule with a slightly umbilicated center was again visualized. It measures approximately 1 to 1.2 cm in size. No biopsies were taken today due to the patient's lab values with an elevated INR, which unfortunately, is the patient's baseline due to her coagulopathy related to her cirrhosis. The nodule will be reevaluated on repeat endoscopy. The endoscope was advanced beyond the pylorus into the duodenum, which appeared normal down to the second portion. The endoscope was then withdrawn from the patient and fitted with the speed manager long term care. The endoscope was advanced back down to the GE junction and slightly withdrawn until the most distal varices were encountered. Three bands were placed at the 12 o'clock, 3 o'clock, and 6 o'clock positions successfully. The endoscope was then withdrawn from the patient. The patient tolerated the procedure well and there were no complications. IMPRESSION: 1. Grade III to grade IV esophageal varices status post banding times 3. 2. LA class A reflux-induced esophagitis. 3. Diffuse portal hypertensive gastropathy. 4. An antral nodule that will be reevaluated on future endoscopies. PLAN AND RECOMMENDATIONS: 1. Discharge home when recovery parameters are met. 2. Liquid diet times 48 hours, followed by soft diet times 48 hours, then regular. 3. Follow up in GI clinic as needed. 4. Recall EGD in 4-6 weeks as the schedule allows for repeat banding. We will attempt to give the patient Doptelet to improve her platelet levels, which may make a biopsy more amenable. OPERATIVE REPORT [id number] JESS QUEEN TRANSINT:[id number] Voice Confirmation ID: [id number] DOCUMENT ID: [id number] SAMANTHA BEATTY DO at 2017 CC: [id number] DICTATION DATE: 06/19/19 1111 BANK WORKER: 06/19/19 1138 [facility] 06/19/19 [id number] [place] [address]
== END 2019-06-19 13:43 | disposition home or self-care (01) ==
LOC: D.OPS 08:45
PROVIDERS: Anesthesiology; ATTEND Internal Medicine Gastroenterology
DX: I85.00 Esophageal varices without bleeding (principal); K21.0 Gastro-esophageal reflux disease with esophagitis; K76.6 Portal hypertension; K31.89 Other diseases of stomach and duodenum; Z01.812 Encounter for preprocedural laboratory examination

== ENCOUNTER → 2019-08-09 08:21 | Outpatient (CLI) | payer MEDICAID ==
[2019-06-19 09:51] VITALS: BMI 30.8
[~2019-08-09 08:21] MED LIST changes: +PROPRANOLOL HCL20 MG PO
[2019-08-09 08:49] LABS: BASOPHILS 0.3 % (0-2); HEMATOCRIT 37.8 % (36.0-48.0); HEMOGLOBIN 12.6 g/dL (12-16); IMMATURE GRANULOCYTES 0.3 % (0-5); LYMPHOCYTES 15.1 % (15-50); MCH 31.2 pg (26.0-34.0); MCHC 33.3 g/dL (31.0-37.0); MCV 93.6 fL (80.0-100.0); MEAN PLATELET VOLUME 9.8 fL (7.4-10.4); MONOCYTES 7.2 % (2-11); NEUTROPHILS 74.1 % (40-80); PLATELET COUNT 59 10x3/uL (130-400); RBC 4.04 10x6/uL (4.00-5.40); RDW 15.3 % (11.5-14.5); WBC 6.4 10x3/uL (4.8-10.8)
[2019-08-09 09:02] LABS: INR 1.52 (0.85-1.17); PROTIME 17.7 SECONDS (11.6-15.0)
[2019-08-09 09:10] LABS: ALBUMIN 3.1 g/dL (3.4-5.0); ALKALINE PHOSPHATASE 99 U/L (46-116); ALT (SGPT) 27 U/L (10-68); BILIRUBIN - DIRECT 0.54 mg/dL (0.00-0.30); BILIRUBIN - INDIRECT 1.57 mg/dL (0.00-1.00); BILIRUBIN - TOTAL 2.11 mg/dL (0.2-1.3); CALC OSMOLALITY 280 mosm/kg (275-300); CALCIUM 8.7 mg/dL (8.5-10.1); CARBON DIOXIDE 26.6 mmol/L (21.0-32.0); CHLORIDE - SERUM 106 mmol/L (98-107); CREATININE - SERUM 0.7 mg/dL (0.6-1.3); GLUCOSE 112 mg/dL (74-106); POTASSIUM - SERUM 3.8 mmol/L (3.5-5.1); PROTEIN - SERUM 7.3 g/dL (6.4-8.2); SODIUM 141 mmol/L (136-145); UREA NITROGEN 10 mg/dL (7-18); eGFR NON AFRICAN AMERICAN > 90 mL/min (90-120)
[2019-08-09 09:41] LABS: PLATELET ESTIMATE DECREASED
== END | disposition home or self-care (01) ==
LOC: D.US 07-28 09:30
PROVIDERS: ATTEND Internal Medicine Gastroenterology
DX: K74.60 Unspecified cirrhosis of liver (principal)

== ENCOUNTER 2019-08-23 10:12 | Day surgery (SDC) | payer MEDICAID ==
[~2019-08-23] VITALS: Ht 165.1 cm; Wt 84.5 kg
[2019-08-23 10:35] LABS: HEMATOCRIT 34.6 % (36.0-48.0); HEMOGLOBIN 11.4 g/dL (12-16); MCHC 32.9 g/dL (31.0-37.0); MEAN PLATELET VOLUME 9.1 fL (7.4-10.4); PLATELET COUNT 79 10x3/uL (130-400); RBC 3.68 10x6/uL (4.00-5.40); RDW 15.9 % (11.5-14.5); WBC 6.9 10x3/uL (4.8-10.8)
[2019-08-23 10:51] LABS: PLATELET ESTIMATE DECREASED
[2019-08-23 11:09] VITALS: BP 105/50; Ht 165.1 cm; Wt 84.5 kg
--- NOTE | 2019-08-28 11:16 | OP ---
PATIENT NAME: JESS QUEEN MEDICAL RECORD: [id number] :63 [facility] DATE: SURGEON: SAMANTHA BEATTY DO DATE OF OPERATION: 08/23/2019 PROCEDURE: Colonoscopy with polypectomy. INDICATIONS FOR PROCEDURE: Screening for colorectal cancer, history of colon polyps, pelvic varices. SCOPE: [employer] video pediatric colonoscope. MEDICATIONS: Propofol 450 mg IV per anesthesia. WITHDRAWAL TIME: 16 minutes. ESTIMATED BLOOD LOSS: Minimal. COMPLICATIONS: None. FINDINGS: Informed consent was given. The patient was made comfortable with the above medication. After reaching an adequate level of sedation by slow IV push, the patient was placed on her left side. A digital rectal examination was performed and was normal. The endoscope was advanced under direct visualization through the rectum to the cecum, confirmed by the presence of the appendiceal orifice and ileocecal valve. The endoscope was slowly withdrawn and the mucosa was carefully examined. The prep quality was fair. The entire colon was friable and bled easily with contact. There were 2 polyps visualized on today's examination. The first was a benign appearing sessile polyp, which measured approximately 9 mm to a centimeter in the cecum. It was removed using a hot snare in 1 piece and completely retrieved. In the ascending colon, there was a benign appearing sessile polyp, which measured approximately 1.3 to 1.5 cm in size. It was removed using endoscopic mucosal resection technique utilizing a saline pillow by isotonic saline injection followed by snare polypectomy in 1 piece. The polyp was retrieved. Retroflexion was performed in the rectum with visualization of grade II internal hemorrhoids without active bleeding. In the rectum, there were also pelvic varices, which were evident. There were no signs of bleeding stigmata or active bleeding. The endoscope was withdrawn from the patient. The patient tolerated the procedure well and there were no complications. IMPRESSION: 1. Two polyps as described above, removed using a combination of EMR technique and a hot snare. 2. Moderate diverticulosis of the sigmoid colon. 3. Grade II internal hemorrhoids without active bleeding. 4. Pelvic varices. PLAN AND RECOMMENDATIONS: 1. Discharge home when recovery parameters are met. 2. Follow up biopsy specimen results. 3. High fiber diet. 4. Continue current medications. 5. Consider recall colonoscopy in 5 years for surveillance regarding a personal history of polyps. OPERATIVE REPORT [id number] JESS QUEEN JODIE TRANSINT:[id number] Voice Confirmation ID: [id number] DOCUMENT ID: [id number] SAMANTHA BEATTY DO at 1116 CC: [id number] DICTATION DATE: 08/23/19 1310 MANAGER COMPLETIONS: 08/23/19 1324 [facility] 08/23/19 [facility] [address] [id number]
== END 2019-08-23 13:49 | disposition home or self-care (01) ==
LOC: D.OPS 10:12
PROVIDERS: Anesthesiology; ATTEND Internal Medicine Gastroenterology
DX: K63.5 Polyp of colon (principal); Z12.11 Encounter for screening for malignant neoplasm of colon; Z86.010 Personal history of colon polyps; I86.2 Pelvic varices

== ENCOUNTER 2019-11-20 10:49 | Day surgery (SDC) | payer MEDICAID ==
[~2019-11-20] VITALS: Ht 165.1 cm; Wt 506.8 kg
--- NOTE | ~2019-11-20 | OP ---
PATIENT NAME: JESS QUEEN MEDICAL RECORD: [id number] :63 LOCATION:[facility] ADMISSION DATE: SURGEON: SAMANTHA BEATTY DO DATE OF OPERATION: 11/20/2019 PROCEDURE: EGD with band ligation and biopsies. INDICATIONS FOR PROCEDURE: History of esophageal varices requiring banding secondary to cirrhosis. The patient's last EGD was on June 19, 2019 at which time, 3 bands were placed. SCOPE: Olympus video gastroscope. MEDICATIONS: Propofol 280 mg IV per anesthesia. ESTIMATED BLOOD LOSS: Minimal. COMPLICATIONS: None. FINDINGS: Informed consent was given. The patient was made comfortable with the above medication. After reaching an adequate level of sedation by slow IV push, the patient was placed on her left side. The endoscope was advanced under direct visualization through the mouth to the second portion of the duodenum. Throughout the entire esophagus, there were grade III to grade IV esophageal varices with some [place] red spots as well present along the columns. There was no active bleeding. The endoscope was advanced down to the GE junction where there was mild evidence of LA class A reflux-induced esophagitis. The endoscope was advanced into the stomach where there was diffuse portal hypertensive gastropathy without bleeding. Retroflexion was performed to evaluate the fundus were no obvious gastric varices were visualized. In the antrum, the previously identified nodule with a slightly umbilicated center was again seen. The nodule measured approximately 1-1.2 cm in size. A single cold forceps biopsy was taken from the site to submit for pathology. The endoscope was advanced beyond the pylorus into the duodenum, which appeared normal down to the second portion. The endoscope was then withdrawn from the patient and fitted with the [employer] speed experimental rocketsled mechanic. The endoscope was advanced back down to the GE junction and slowly withdrawn until the most distal varices were encountered. Four bands were placed at the sites where the varices were most prominent. The endoscope was then withdrawn from the patient. The patient tolerated the procedure well and there were no complications. IMPRESSION: 1. Grade III to grade IV esophageal varices status post banding times 3. 2. LA class A reflux-induced esophagitis. 3. Diffuse portal hypertensive gastropathy. 4. Antral nodule that was biopsied. PLAN AND RECOMMENDATIONS: 1. Discharge home when recovery parameters are met. 2. Liquid diet times 48 hours, followed by soft diet times 48 hours, then regular. 3. Follow up in GI clinic as needed. 4. Repeat EGD in 6-8 weeks for repeat banding as indicated. TRANSINT:[id number] Voice Confirmation ID: [id number] DOCUMENT ID: [id number] OPERATIVE REPORT [id number] JESS QUEEN NATHAN A DO CC: [id number] DICTATION DATE: 11/20/19 1354 DRUM ATTENDANT: 11/20/19 2136 [facility] 11/20/[id number] [place] [address]
[2019-11-20 11:14] LABS: HEMATOCRIT 35.8 % (36.0-48.0); HEMOGLOBIN 11.5 g/dL (12-16); MCH 29.6 pg (26.0-34.0); MCHC 32.1 g/dL (31.0-37.0); MEAN PLATELET VOLUME 8.8 fL (7.4-10.4); RBC 3.89 10x6/uL (4.00-5.40); RDW 15.7 % (11.5-14.5); WBC 6.6 10x3/uL (4.8-10.8)
[2019-11-20 11:24] LABS: INR 1.31 (0.85-1.17); PROTIME 16.2 SECONDS (11.6-15.0)
[2019-11-20 11:27] LABS: ALKALINE PHOSPHATASE 82 U/L (46-116); ALT (SGPT) 26 U/L (10-68); BILIRUBIN - TOTAL 1.62 mg/dL (0.2-1.3); CALC OSMOLALITY 280 mosm/kg (275-300); CALCIUM 8.6 mg/dL (8.5-10.1); CARBON DIOXIDE 31.1 mmol/L (21.0-32.0); CHLORIDE - SERUM 106 mmol/L (98-107); CREATININE - SERUM 0.8 mg/dL (0.6-1.3); GLUCOSE 107 mg/dL (74-106); PROTEIN - SERUM 7.5 g/dL (6.4-8.2); SODIUM 141 mmol/L (136-145); UREA NITROGEN 12 mg/dL (7-18); eGFR NON AFRICAN AMERICAN 79 mL/min (90-120)
[2019-11-20] MEDS ORDERED: IBUPROFEN400 MG (12:21)
[2019-11-20 12:34] VITALS: BP 121/57; Ht 165.1 cm; Wt 506.8 kg
--- NOTE | 2019-11-20 14:53 | NUR ---
1358 PT ADMITTED TO [address] [place] [address] AND COMPLAINING OF ESOPHOGEAL PAIN AFTER BANDING. DR BEATTY AWARE AND ORDERED LIDOCAINE VISCOUS.
--- NOTE | 2019-11-20 15:53 | NUR ---
1520 IV DC'D. CATHETER TIP INTACT. NO BLEEDING AT SITE. BANDAID APPLIED.
== END 2019-11-20 15:40 | disposition home or self-care (01) ==
LOC: D.OPS 10:49
PROVIDERS: Anesthesiology; ATTEND Internal Medicine Gastroenterology
DX: I85.00 Esophageal varices without bleeding (principal); I86.4 Gastric varices; E72.20 Disorder of urea cycle metabolism, unspecified; K74.60 Unspecified cirrhosis of liver; E80.6 Other disorders of bilirubin metabolism

== ENCOUNTER → 2020-01-16 09:56 | Outpatient (CLI) | payer MEDICAID ==
[2019-11-20 12:34] VITALS: BMI 185.9
[~2020-01-16 09:56] MED LIST changes: +IBUPROFEN400 MG
[2020-01-16 10:35] LABS: HEMATOCRIT 34.5 % (36.0-48.0); HEMOGLOBIN 11.4 g/dL (12-16); MCH 29.5 pg (26.0-34.0); MCV 89.4 fL (80.0-100.0); MEAN PLATELET VOLUME 8.8 fL (7.4-10.4); PLATELET COUNT 71 10x3/uL (130-400); RBC 3.86 10x6/uL (4.00-5.40); RDW 15.9 % (11.5-14.5); WBC 5.6 10x3/uL (4.8-10.8)
[2020-01-16 10:44] LABS: INR 1.32 (0.85-1.17); PROTIME 16.3 SECONDS (11.6-15.0)
[2020-01-16 10:52] LABS: ALKALINE PHOSPHATASE 98 U/L (30-120); ALT (SGPT) 30 U/L (10-68); BILIRUBIN - DIRECT 0.36 mg/dL (0.00-0.30); BILIRUBIN - INDIRECT 0.95 mg/dL (0.00-1.00); BILIRUBIN - TOTAL 1.31 mg/dL (0.2-1.3); CALC OSMOLALITY 276 mosm/kg (275-300); CALCIUM 8.6 mg/dL (8.5-10.1); CARBON DIOXIDE 23.1 mmol/L (21.0-32.0); CHLORIDE - SERUM 106 mmol/L (98-107); CREATININE - SERUM 0.7 mg/dL (0.6-1.3); GLUCOSE 143 mg/dL (74-106); POTASSIUM - SERUM 3.8 mmol/L (3.5-5.1); PROTEIN - SERUM 7.5 g/dL (6.4-8.2); SODIUM 138 mmol/L (136-145); UREA NITROGEN 10 mg/dL (7-18); eGFR NON AFRICAN AMERICAN > 90 mL/min (90-120)
[2020-01-16 12:37] LABS: BASOPHILS 1 % (0-2); EOSINOPHILS 6 % (0-7); LYMPHOCYTES 17 % (15-50); MONOCYTES 10 % (2-11); NEUTROPHILS 65 % (40-80); PLATELET ESTIMATE DECREASED; ROULEAUX OCC
== END | disposition home or self-care (01) ==
LOC: D.US 09:56
PROVIDERS: ATTEND Internal Medicine Gastroenterology
DX: K74.60 Unspecified cirrhosis of liver (principal)